=== PATIENT | male | born 1960 | race Caucasian/White ===

== ENCOUNTER 2018-07-16 19:09 | Emergency (ER) | payer OTHER ==
[~2018-07-16] VITALS: Ht 170.2 cm; Wt 61.8 kg
[2018-07-16 19:12] VITALS: Ht 170.2 cm; Wt 61.8 kg
--- NOTE | 2018-07-16 22:23 | ERD ---
ER Documentation Chief Complaint Chief Complaint RIGHT HAND NUMBNESS AND WEAKNESS X 2 YEARS HPI This is a 57-year-old male with a past medical history of diabetes on metformin, chronic progressive worsening diabetic neuropathy who is now presenting with worsening neuropathic pains. The patient and his family report that his symptoms have been ongoing for over 2 years. He reports a numbness and tingling sensation to the fourth and fifth digits of the hands bilaterally, right worse than left. He is able to move all of his fingers, but he feels like his index and pinky fingers are weaker than they were several years ago. The patient also reports intermittent tingling to his lower extremities as well. That said, he is able to ambulate without difficulty. The patient does not endorse any new complaints at this time. The patient is reestablishing care and has an appointment with his physician for later this month, but they wanted to make sure that there was not anything emergent going on. The patient denies feeling sick recently. The patient denies fever or chills. The patient has had no headache or vision changes. The patient does not endorse neck or back pain. The patient denies lightheadedness or dizziness. The patient has had no chest pain or trouble breathing. The patient denies nausea or vomiting. The patient denies abdominal pain. The patient denies changes to bowel movements or urination. The patient has had no new focal deficits. The patient has had no new weakness or numbness or tingling to the face or extremities. ROS All systems reviewed and are negative except as per history of present illness. PMhx/Soc History of Surgery: No Anesthesia Reaction: No Hx Neurological Disorder: No Hx Respiratory Disorders: No Hx Cardiac Disorders: No Hx Psychiatric Problems: No Hx Miscellaneous Medical Probl: Yes (DM) Hx Alcohol Use: No Hx Substance Use: No Hx Tobacco Use: Yes Smoking Status: Current every day smoker FmHx Family History: diabetes Physical Exam Vitals Vital Signs Date Temp Pulse Resp B/P (MAP) Pulse Ox O2 O2 Flow FiO2 Time Delivery Rate 07/16/18 98.8 91 20 123/73 98 19:12 (90) Physical Exam Const: No acute distress Head: Atraumatic Eyes: Normal Conjunctiva ENT: Normal External Ears, Nose and Mouth. Neck: Full range of motion. No meningismus. Resp: Clear to auscultation bilaterally Cardio: Regular rate and rhythm, no murmurs Abd: Soft, non tender, non distended. Normal bowel sounds Skin: No petechiae or rashes Back: No midline or flank tenderness Ext: No cyanosis, or edema Neur: Awake and alert. No facial asymmetry. Cranial nerves intact. Normal strength and sensation objectively, though he reports decreased subjective sensation in the ulnar distribution of his hands bilaterally. Coordination intact. Psych: Normal Mood and Affect Procedures/MDM MDM The patient's presentation warrants further investigation. Previous medical records, if available, were reviewed. The patient's symptoms are most consistent with diabetic neuropathy. I do not see any evidence concerning for a stroke. I have low suspicion for cerebral ischemia or intracranial hemorrhage. The patient's symptoms do appear to be in the ulnar distribution. A peripheral radiculopathy is also a possibility, though my suspicion for diabetic neuropathy is certainly much higher. I do not see any evidence of soft tissue cellulitis or other infection. The patient's pulses are intact. I have decreased suspicion for peripheral vascular disease. TREATMENT/DISPOSITION The patient does not require any immediate treatment in the emergency department. I discussed the possibility of anti-inflammatory medications to help with his symptoms. I do not want to prescribe the patient a course of steroids as this will affect his blood sugar. I will prescribe the patient a course of ibuprofen. Upon reevaluation of the patient, symptoms have improved. No emergent diagnoses were identified. At this time, I feel that the patient stable for discharge. The patient was instructed to follow-up with a primary care physician. The patient has an appointment scheduled for this month. The patient will be given strict precautions with which to return to the emergency department. Prescriptions: Ibuprofen The patient's blood pressure was elevated at greater than 120/80 while in the emergency department. The patient was otherwise stable with no evidence of hypertensive urgency or emergency. The patient does not require admission for blood pressure control. I have discussed with the patient the risks of hypertension. I have instructed the patient to return to the ER for any new or worsening symptoms including chest pain, shortness of breath, headache, blurred vision, confusion, nausea, vomiting or LOC. I have advised the patient to follow up with the primary care physician for outpatient monitoring and treatment for hypertension in 1-3 days. Disclaimer: Inadvertent spelling and grammatical errors are likely due to EHR/dictation software use and do not reflect on the overall quality of patient care. Note that the electronic time recorded on this note does not necessarily reflect the actual time of the patient encounter. Departure Diagnosis: Primary Impression: Diabetic neuropathy Diabetes mellitus type: other specified (including AKUA) Diabetes mellitus complication detail: diabetic polyneuropathy Qualified Codes: E13.42 - Other specified diabetes mellitus with diabetic polyneuropathy Condition: Stable Patient Instructions: DIABETES, General Info, Neuropathy, Peripheral Additional Instructions: Thank you for for coming to [facility] for your care today. Please ask your nurse or provider if you have questions about your care today and do not leave until all your questions have been answered. Please use any medications given as directed and follow-up with your doctor (or the doctor you were referred to) in the next 1-3 days. If you do not have a primary care doctor you may follow up at the [facility] or [facility] (listed below). You may also use motrin and tylenol as needed for fever and/or pain unless instructed otherwise by your provider or nurse. Indications for more urgent follow-up have been discussed, but you may return to the Emergency Department at ANY time for any worrisome or worsening symptoms. If you have abdominal pain, please know that no test or exam you received is perfect and you should follow up within 8 hours for continued pain. If you had any imaging studies today, such as an X-Ray or CT Scan, these studies will be reviewed later by a radiologist. You will be called if there are imp ortant findings that were not identified today, so make sure the contact information you provided at registration is correct. If you received any narcotic pain control medicine today, such as Vicodin, Morphine or Dilaudid, your coordination and judgment may be affected for a number of hours. Please do not drive or operate heavy machinery, and you may want someone to assist you at home. If you were given a prescription for narcotic medication, be aware that it is very addictive- use sparingly and only if necessary. PLEASE SEEK FURTHER EVALUATION AND MANAGEMENT AT YOUR DOCTORS OFFICE WITHIN THE NEXT 1-3 DAYS. IT IS YOUR RESPONSIBILITY TO MAKE AN APPOINTMENT FOR FOLOW-UP CARE. IF YOU HAVE A PRIMARY DOCTOR, PLEASE CALL THEIR OFFICE TO SCHEDULE AN APPOINTMENT FOR FOLLOW UP. IF YOU DO NOT HAVE A PRIMARY DOCTOR YOU CAN CALL OUR PHYSICIAN REFERRAL HOTLINE AT IF YOU CAN NOT AFFORD TO SEE A PHYSICIAN YOU CAN CHOSE FROM THE FOLLOWING [facility] CLINICS: [facility] [address] [facility] [address] [facility] [address] [facility] [address] [facility] [address] [facility]. [address] TYRA THOMPSON MD Jul 16, 2018 22:23
[2018-07-16] MEDS ORDERED: IBUP-1542 PO (22:24)
[2018-07-16 22:45] VITALS: BP 103/60; PULSE 80; RESP 20
== END 2018-07-16 22:47 | disposition home or self-care (01) ==
LOC: FTE 19:09
DX: E13.42 Other specified diabetes mellitus with diabetic polyneuropathy (principal); F17.210 Nicotine dependence, cigarettes, uncomplicated; Z79.84 Long term (current) use of oral hypoglycemic drugs
CPT/HCPCS: 99282